=== PATIENT | female | born 1945 | race Caucasian/White ===

== ENCOUNTER 2024-05-31 15:38 | Inpatient (IN) | payer OTHER, MEDICARE ==
[2024-05-31 17:04] VITALS: BMI 27.4
[2024-05-31 17:40] LABS: BASO % 0.9 % (0-2.0); EOS % 0.7 % (0-4.5); HEMATOCRIT 35.7 % (32.4-45.2); LYMPH % 14.9 % (8-40); MCH 28.2 pg (25.7-33.7); MCHC 33.5 g/dl (32.0-36.0); MEAN CELL VOLUME 84.1 fl (80-96); MEAN PLT VOLUME 8.5 fl (7.5-11.1); NEUT % 77.5 % (42.8-82.8); PLATELET COUNT 487 10^3/uL (134-434); RBC 4.24 M/mm3 (3.60-5.2); RDW 14.2 % (11.6-15.6); WHITE BLOOD COUNT 11.9 K/mm3 (4.0-10.0)
[2024-05-31 18:04] LABS: POTASSIUM 3.8 mmol/L (3.5-5.1)
[2024-05-31] MEDS: ACETAMINOPHEN 1000 MG/100 ML BAG IVPB ONE (18:15)
[2024-05-31] MEDS: SODIUM CHLORIDE 0.9% 1000 ML INFUS.BAG IV ONE (18:15)
[2024-05-31 18:16] LABS: EPI CELLS 24 /uL (0-25.1); HYALINE CASTS 0 /uL (0-3.1); PH,URINE 5.5 (5.0-8.0); URINE APPEARANCE CLEAR; URINE BACTERIA 140 /uL (0-1359); URINE BILIRUBIN NEGATIVE (NEGATIVE); URINE COLOR YELLOW; URINE GLUCOSE (UA) NEGATIVE (NEGATIVE); URINE KETONE NEGATIVE (NEGATIVE); URINE LEUK ESTERASE 1+ (NEGATIVE); URINE NITRITE NEGATIVE (NEGATIVE); URINE PROTEIN NEGATIVE (NEGATIVE); URINE RBC 11 /uL (0-23.9); URINE UROBILINOGEN 0.2 mg/dL (0.2-1.0); URINE WBC 86 /uL (0-25.8)
[2024-05-31 18:38] LABS: BLOOD UREA NITROGEN 23.6 mg/dL (7-18)
[2024-05-31 18:39] LABS: MAGNESIUM 1.5 mg/dL (1.8-2.4)
[2024-05-31 18:43] LABS: TOT PROT 6.6 g/dl (6.4-8.2)
[2024-05-31 19:18] LABS: CALCIUM 9.8 mg/dL (8.5-10.1)
[2024-05-31 19:20] LABS: ALBUMIN 3.1 g/dl (3.4-5.0)
[2024-05-31 19:22] LABS: CREATININE 0.8 mg/dL (0.55-1.3)
[2024-05-31 19:23] LABS: BILIRUBIN,TOTAL 0.5 mg/dL (0.2-1)
[2024-05-31] MEDS ORDERED: MAGNESIUM 1GM/D5W - 1 GM/100 ML IVPB IVPB ONE (20:13)
[2024-05-31] MEDS: MAGNESIUM SULF 50% (8.12 MEQ/2 ML-1 GM VIAL) IVPB ONE (20:19)
[2024-05-31] MEDS ORDERED: CEFTRIAXONE 1 GM/50 ML BAG ONE (20:44)
[2024-05-31] MEDS: CEFTRIAXONE 1,000 MG in DEXTROSE 5%-WATER - 50 ML IVPB ONE (20:56)
[2024-05-31] MEDS: SODIUM CHLORIDE 1,000 ML IV SCH (21:34)
[2024-05-31] MEDS ORDERED: ATORVASTATIN CA 40 MG TABLET (FP) PO SCH (22:00)
[2024-06-01] MEDS ORDERED: PANTOPRAZOLE 20 MG TABLET PO ONE ×2 (00:03→09:24)
[2024-06-01] MEDS ORDERED: ATORVASTATIN CA 40 MG TABLET (FP) ONE (00:03)
[2024-06-01] MEDS: PANTOPRAZOLE 20 MG TABLET PO SCH (00:19)
[2024-06-01] MEDS: SODIUM CHLORIDE 1,000 ML IV SCH (00:19)
[2024-06-01] MEDS: ATORVASTATIN CA 40 MG TABLET (FP) PO SCH (00:20)
[2024-06-01] MEDS: INSULIN ASPART SLIDING SCALE (NOVOLOG) 1 VIAL SQ SCH (00:20)
[2024-06-01 07:20] LABS: HEMOGLOBIN 12.7 GM/dL (10.7-15.3); MCH 28.6 pg (25.7-33.7); MCHC 33.5 g/dl (32.0-36.0); MEAN CELL VOLUME 85.6 fl (80-96); MEAN PLT VOLUME 8.9 fl (7.5-11.1); PLATELET COUNT 489 10^3/uL (134-434); RBC 4.44 M/mm3 (3.60-5.2); RDW 14.3 % (11.6-15.6); WHITE BLOOD COUNT 9.7 K/mm3 (4.0-10.0)
[2024-06-01] MEDS ORDERED: LEVOTHYROXINE NA 75 MCG TABLET (FP) ONE (07:27)
[2024-06-01] MEDS: LEVOTHYROXINE NA 75 MCG TABLET (FP) PO SCH (07:33)
[2024-06-01 07:50] LABS: POTASSIUM 4.2 mmol/L (3.5-5.1)
[2024-06-01 07:55] LABS: BLOOD UREA NITROGEN 16.6 mg/dL (7-18)
[2024-06-01 07:56] LABS: CALCIUM 10.1 mg/dL (8.5-10.1); MAGNESIUM 1.9 mg/dL (1.8-2.4)
[2024-06-01 07:58] LABS: CREATININE 0.6 mg/dL (0.55-1.3); PHOSPHOROUS 3.3 mg/dL (2.5-4.9)
[2024-06-01] MEDS ORDERED: ISOSORBIDE MONONITRATE 30 MG TAB.SR.24H (FP) PO ONE (09:24)
[2024-06-01] MEDS ORDERED: FOLIC ACID 1 MG TABLET (FP) ONE (09:24)
[2024-06-01] MEDS ORDERED: CEFTRIAXONE 1 GM/50 ML BAG ONE (09:25)
[2024-06-01] MEDS ORDERED: ENOXAPARIN NA (PORCINE) 40 MG/0.4 ML DISP.SYRIN SQ ONE (09:25)
[2024-06-01] MEDS: FOLIC ACID 1 MG TABLET (FP) PO SCH (09:42)
[2024-06-01] MEDS: ENOXAPARIN NA (PORCINE) 40 MG/0.4 ML DISP.SYRIN SQ SCH (09:42)
[2024-06-01] MEDS: CEFTRIAXONE 1 GM in DEXTROSE 5%-WATER - 50 ML IVPB SCH (09:42)
[2024-06-01] MEDS: ISOSORBIDE MONONITRATE 30 MG TAB.SR.24H (FP) PO SCH (09:42)
[2024-06-01] MEDS ORDERED: CEFTRIAXONE 1 GM in DEXTROSE 5%-WATER - 50 ML IVPB SCH (10:00)
[2024-06-01] MEDS ORDERED: ONDANSETRON 4 MG/2 ML VIAL IVPUSH PRN (14:36)
[2024-06-01] MEDS: ASPIRIN COATED 81 MG TABLET.EC PO SCH (20:53)
[2024-06-01] MEDS: clonazePAM 0.5 MG TABLET PO SCH (21:41)
[2024-06-01] MEDS ORDERED: ATORVASTATIN CA 40 MG TABLET (FP) PO SCH (23:15)
[2024-06-02 07:51] LABS: HEMATOCRIT 37.7 % (32.4-45.2); HEMOGLOBIN 12.3 GM/dL (10.7-15.3); MCHC 32.5 g/dl (32.0-36.0); MEAN CELL VOLUME 86.1 fl (80-96); MEAN PLT VOLUME 8.5 fl (7.5-11.1); PLATELET COUNT 447 10^3/uL (134-434); RBC 4.38 M/mm3 (3.60-5.2); RDW 14.4 % (11.6-15.6); WHITE BLOOD COUNT 8.6 K/mm3 (4.0-10.0)
[2024-06-02 08:11] LABS: CHOLESTEROL 83 mg/dL (50-200)
[2024-06-02 08:13] LABS: LDL CHOLESTEROL (ONLY SJRH) 22 mg/dL (5-100)
[2024-06-02 08:14] LABS: HDL CHOLESTEROL 55 mg/dL (40-60)
[2024-06-02 08:20] LABS: POTASSIUM 3.8 mmol/L (3.5-5.1)
[2024-06-02 08:27] LABS: BLOOD UREA NITROGEN 11.3 mg/dL (7-18); CALCIUM 9.5 mg/dL (8.5-10.1); CREATININE 0.8 mg/dL (0.55-1.3); MAGNESIUM 1.7 mg/dL (1.8-2.4)
[2024-06-02 08:30] LABS: BILIRUBIN,TOTAL 0.5 mg/dL (0.2-1); TOT PROT 6.6 g/dl (6.4-8.2)
[2024-06-02] MEDS: MAGNESIUM SULF 50% (8.12 MEQ/2 ML-1 GM VIAL) IVPB ONE (18:55)
[2024-06-03 06:38] LABS: POTASSIUM 3.8 mmol/L (3.5-5.1)
[2024-06-03 06:42] LABS: ALBUMIN 3.1 g/dl (3.4-5.0); CALCIUM 9.7 mg/dL (8.5-10.1); MAGNESIUM 1.9 mg/dL (1.8-2.4)
[2024-06-03 06:46] LABS: CREATININE 0.8 mg/dL (0.55-1.3)
[2024-06-03 06:47] LABS: BILIRUBIN,TOTAL 0.5 mg/dL (0.2-1); TOT PROT 6.6 g/dl (6.4-8.2)
[2024-06-03] MEDS: hydrALAZINE HCL 20 MG/ML VIAL IVPUSH PRN (18:26)
[2024-06-03] MEDS: ACETAMINOPHEN 1000 MG/100 ML BAG IVPB ONE (18:27)
[2024-06-03] MEDS: hydrALAZINE HCL 20 MG/ML VIAL IVPUSH ONE (18:57)
[2024-06-04 06:16] LABS: HEMOGLOBIN 12.1 GM/dL (10.7-15.3); MCH 28.1 pg (25.7-33.7); MCHC 32.7 g/dl (32.0-36.0); MEAN CELL VOLUME 85.9 fl (80-96); MEAN PLT VOLUME 8.7 fl (7.5-11.1); PLATELET COUNT 418 10^3/uL (134-434); RBC 4.31 M/mm3 (3.60-5.2); RDW 14.3 % (11.6-15.6)
[2024-06-04 06:26] LABS: POTASSIUM 3.8 mmol/L (3.5-5.1)
[2024-06-04 06:28] LABS: ALBUMIN 2.9 g/dl (3.4-5.0); MAGNESIUM 1.7 mg/dL (1.8-2.4)
[2024-06-04 06:29] LABS: CALCIUM 9.8 mg/dL (8.5-10.1)
[2024-06-04 06:30] LABS: BLOOD UREA NITROGEN 13.6 mg/dL (7-18)
[2024-06-04 06:31] LABS: CREATININE 0.8 mg/dL (0.55-1.3)
[2024-06-04 06:32] LABS: PHOSPHOROUS 3.7 mg/dL (2.5-4.9)
[2024-06-04 06:33] LABS: TOT PROT 6.3 g/dl (6.4-8.2)
[2024-06-04 06:46] LABS: BILIRUBIN,TOTAL 0.4 mg/dL (0.2-1)
[2024-06-04] MEDS: MAGNESIUM OXIDE 400 MG TABLET (FP) PO ONE (07:37)
[2024-06-04] MEDS: HYDROCHLOROTHIAZIDE 25 MG TABLET (FP) PO SCH (09:20)
[2024-06-04] MEDS: CLOPIDOGREL BISULFATE 75 MG TABLET (FP) PO SCH (09:20)
[2024-06-04] MEDS: VALSARTAN 160 MG TABLET PO SCH (09:20)
[2024-06-04] MEDS ORDERED: PATIENT'S OWN MEDICATION (NON-FORMULARY) (Valsartan/Hydrochlorothiazide [Valsartan-Hctz 32 PO SCH (10:00)
[2024-06-04] MEDS: ATORVASTATIN CA 80 MG TABLET (FP) PO SCH (21:01)
[2024-06-05 07:57] LABS: HEMATOCRIT 37.6 % (32.4-45.2); HEMOGLOBIN 12.4 GM/dL (10.7-15.3); MCH 28.2 pg (25.7-33.7); MCHC 32.9 g/dl (32.0-36.0); MEAN CELL VOLUME 85.8 fl (80-96); PLATELET COUNT 401 10^3/uL (134-434); RBC 4.38 M/mm3 (3.60-5.2); RDW 14.6 % (11.6-15.6); WHITE BLOOD COUNT 8.2 K/mm3 (4.0-10.0)
[2024-06-05 08:12] LABS: POTASSIUM 4.1 mmol/L (3.5-5.1)
[2024-06-05 08:20] LABS: CALCIUM 9.8 mg/dL (8.5-10.1)
[2024-06-05 08:21] LABS: BLOOD UREA NITROGEN 14.3 mg/dL (7-18); MAGNESIUM 1.9 mg/dL (1.8-2.4)
[2024-06-05 08:22] LABS: BILIRUBIN,TOTAL 0.5 mg/dL (0.2-1); TOT PROT 6.2 g/dl (6.4-8.2)
[2024-06-05 08:24] LABS: CREATININE 0.8 mg/dL (0.55-1.3); PHOSPHOROUS 3.8 mg/dL (2.5-4.9)
[2024-06-05] MEDS: ISOSORBIDE MONONITRATE 60 MG TAB.SR.24H (FP) PO SCH (10:42)
[2024-06-05] MEDS: clonazePAM 0.5 MG TABLET PO ONE (15:12)
[2024-06-05] MEDS: hydrOXYzine PAMOATE 25 MG CAPSULE (FP) PO ONE (17:08)
[2024-06-05] MEDS: ATORVASTATIN CA 40 MG TABLET (FP) PO SCH (22:07)
[2024-06-06] MEDS: clonazePAM 0.5 MG TABLET PO PRN (21:17)
[2024-06-07 21:42] VITALS: TEMP 97.9
[2024-06-08 09:47] VITALS: BP 172/66; PULSE 65; RESP 16
== END 2024-06-08 09:30 | DRG 65 ==
LOC: JER 15:38 → JERBED 20:10 → OBSVTOIN 20:10 → J4S 06-01 16:22
PROVIDERS: ADMIT Internal Medicine; ATTEND Internal Medicine
DX: I63.81 Other cerebral infarction due to occlusion or stenosis of small artery (principal); E87.1 Hypo-osmolality and hyponatremia; E86.0 Dehydration; E11.9 Type 2 diabetes mellitus without complications; E03.9 Hypothyroidism, unspecified; I10 Essential (primary) hypertension; H53.2 Diplopia; R00.1 Bradycardia, unspecified; E83.42 Hypomagnesemia; F41.9 Anxiety disorder, unspecified
CPT/HCPCS: 36415; 70450-TC; 70496-TC; 70498-TC; 70551-TC; 71045-TC-FY; 72170-TC-FY; 73060-TC-RT-FY; 73110-TC-RT-FY; 73130-TC-RT-FY; 73502-TC-RT-FY; 80048; 80053; 80061; 81003; 82550; 82607; 82962; 83036; 83735; 84100; 84436; 84443; 85025; 85027; 93005; 93010; 93306-TC; 97116-GP; 97161-GP; 99285-25; J0131